=== PATIENT | male | born 1955 ===

== ENCOUNTER 2018-10-07 07:46 | Outpatient (CLI) | payer OTHER | END 2018-10-07 07:48 | disposition home or self-care (01) | LOC: SONOGRAMA 07:46 | DX: E04.2 Nontoxic multinodular goiter (principal) ==

== ENCOUNTER 2022-11-20 08:19 | Outpatient (CLI) | payer OTHER | END 2022-11-20 08:23 | disposition home or self-care (01) | LOC: SONOGRAMA 08:19 | PROVIDERS: ATTEND Pathology Anatomic Pathology & Clinical Pathology | DX: D34 Benign neoplasm of thyroid gland (principal); E04.2 Nontoxic multinodular goiter; E04.1 Nontoxic single thyroid nodule ==